=== PATIENT | female | born 2000 | race Caucasian/White ===

== ENCOUNTER 2019-12-11 15:54 | Outpatient (CLI) | payer OTHER, SELFPAY ==
--- NOTE | ~2019-12-11 | XR_ITS ---
EXAMINATION: [id number] DATE: 12/11/2019 16:20 INDICATION: Right rib pain. Fall. TECHNIQUE: A frontal view of the chest and 3 views of the right ribs were obtained. COMPARISON: Thoracic spine radiographs 05/15/2017 FINDINGS: The chest demonstrates clear lungs without pneumonia, pleural effusion, or pneumothorax. Th e heart size is normal. IMPRESSION: 1. No rib fracture. Reviewed, dictated and finalized at location B. IMPRESSION: 1. No rib fracture.
== END 2019-12-11 15:55 | disposition home or self-care (01) ==
LOC: CHSIMG 15:58
PROVIDERS: PCP Family Medicine; Visit Provider Family Medicine
DX: R07.89 Other chest pain (principal)
CPT/HCPCS: 71101

== ENCOUNTER 2020-01-07 14:43 | Outpatient (CLI) | payer OTHER, SELFPAY ==
[2020-01-08 15:21] LABS: SARS-CoV-2 RNA PCR Negative
== END 2020-01-07 14:44 | disposition home or self-care (01) ==
LOC: CHSLAB 14:46
PROVIDERS: PCP Family Medicine; Visit Provider Family Medicine
DX: J02.9 Acute pharyngitis, unspecified (principal); Z20.828 Contact with and (suspected) exposure to other viral communicable diseases
CPT/HCPCS: 87081; 87635; 87880; C9803; U0003

== ENCOUNTER 2020-01-18 16:02 | Outpatient (CLI) | payer OTHER, SELFPAY ==
[2020-01-19 19:47] LABS: SARS-CoV-2 RNA PCR Positive
== END 2020-01-18 16:03 | disposition home or self-care (01) ==
PROVIDERS: PCP Family Medicine; Visit Provider Family Medicine
DX: U07.1 COVID-19 (principal)
CPT/HCPCS: 87635; C9803; U0003